=== PATIENT | female | born 1970 | race Caucasian/White ===

== ENCOUNTER 2018-04-09 19:08 | Emergency (ER) | payer OTHER ==
[~2018-04-09] VITALS: Ht 170.2 cm; Wt 82.5 kg
[2018-04-09 19:20] VITALS: Ht 170.2 cm; Wt 82.5 kg
[2018-04-09 21:11] VITALS: BP 148/86
== END 2018-04-09 21:11 | disposition home or self-care (01) ==
LOC: ED 19:08
DX: J06.9 Acute upper respiratory infection, unspecified (principal); R03.0 Elevated blood-pressure reading, without diagnosis of hypertension

== ENCOUNTER 2018-12-17 18:59 | Emergency (ER) | payer OTHER ==
[~2018-12-17] VITALS: Ht 170.2 cm; Wt 83.5 kg
[2018-12-17 19:06] VITALS: Ht 170.2 cm; Wt 83.5 kg
[2018-12-17 20:11] VITALS: BP 157/105
== END 2018-12-17 20:11 | disposition home or self-care (01) ==
LOC: ED 18:59
DX: I10 Essential (primary) hypertension (principal); Z98.82 Breast implant status; Z98.84 Bariatric surgery status

== ENCOUNTER 2019-02-23 13:10 | Emergency (ER) | payer OTHER ==
[~2019-02-23] VITALS: Ht 170.2 cm; Wt 86.2 kg
[2019-02-23 13:19] VITALS: Ht 170.2 cm; Wt 86.2 kg
[2019-02-23 18:56] VITALS: BP 134/81
== END 2019-02-23 18:45 | disposition home or self-care (01) ==
LOC: ED 13:10
DX: R51 Headache (principal); H53.8 Other visual disturbances; H92.03 Otalgia, bilateral; Z41.1 Encounter for cosmetic surgery
CPT/HCPCS: 82962

== ENCOUNTER 2019-10-29 19:51 | Emergency (ER) | payer OTHER ==
[~2019-10-29] VITALS: Ht 170.2 cm; Wt 86.2 kg
[2019-10-29 20:04] VITALS: Ht 170.2 cm; Wt 86.2 kg
[2019-10-29 21:56] VITALS: BP 127/82
== END 2019-10-29 21:56 | disposition home or self-care (01) ==
LOC: ED 19:51
DX: N39.0 Urinary tract infection, site not specified (principal); I10 Essential (primary) hypertension; Z41.1 Encounter for cosmetic surgery; Z98.84 Bariatric surgery status

== ENCOUNTER 2020-08-22 22:01 | Emergency (ER) | payer OTHER ==
[~2020-08-22] VITALS: Ht 170.2 cm; Wt 88.9 kg
[2020-08-22 22:36] VITALS: Ht 170.2 cm; Wt 88.9 kg
[2020-08-23 01:38] VITALS: BP 154/91
== END 2020-08-23 01:38 | disposition home or self-care (01) ==
LOC: ED 22:01
DX: S61.214A Laceration without foreign body of right ring finger without damage to nail, initial encounter (principal); W26.0XXA Contact with knife, initial encounter; Y93.89 Activity, other specified; Y92.89 Other specified places as the place of occurrence of the external cause; Y99.8 Other external cause status
CPT/HCPCS: 90715; J2001